=== PATIENT | male | born 1945 | race Two or more races ===

== ENCOUNTER 2024-10-13 15:23 | Emergency (ER) | payer OTHER ==
[~2024-10-13] VITALS: Ht 172.7 cm; Wt 71.2 kg
[2024-10-13 15:25] VITALS: TEMP 98.3
[2024-10-13] MEDS ORDERED: KETOROLAC TROMETHAMINE INJ 30 MG/ML VIAL ONE (15:44)
[2024-10-13] MEDS: KETOROLAC TROMETHAMINE INJ 30 MG/ML VIAL IM ONE (15:48)
[2024-10-13] MEDS ORDERED: IBUP-1953 PO (17:00)
[2024-10-13 17:32] VITALS: BP 131/76; O2SAT 98
== END 2024-10-13 17:32 | disposition home or self-care (01) ==
LOC: ER 16:09
DX: R07.81 Pleurodynia (principal); M25.562 Pain in left knee; E11.9 Type 2 diabetes mellitus without complications; Z79.1 Long term (current) use of non-steroidal anti-inflammatories (NSAID); V29.99XA Rider (driver) (passenger) of other motorcycle injured in unspecified traffic accident, initial encounter; Y93.89 Activity, other specified; Y92.415 Exit ramp or entrance ramp of street or highway as the place of occurrence of the external cause; Y99.8 Other external cause status
CPT/HCPCS: 99284; 96372; 73564; 71100; J1885